=== PATIENT | male | born 1995 | race Caucasian/White ===

== ENCOUNTER 2019-01-11 08:08 | Emergency (ER) | payer BC ==
[2019-01-11 08:36] VITALS: BP 126/62
[2019-01-11] MEDS ORDERED: Ibuprofen TAB* 600 MG PO ONE (08:39)
--- NOTE | 2019-01-11 10:18 | UC ---
Abdominal Pain Male HPI - HPI Summary HPI Summary: diffuse abdominal pain x 4 days pain is dull, 5 out of 10 , has been having high fever, chills, body aches, + nausea and vomiting denies any cough , no sore throat , no neck pain , no photophobia no diarrhea, no dysuria - History of Current Complaint Chief Complaint: UCGeneralIllness Stated Complaint: FLU LIKE SYMPTOMS X 4 DAYS Time Seen by Provider: 01/11/19 08:38 Hx Obtained From: Patient Onset/Duration: Gradual Onset, Lasting Days - 4, Still Present Timing: Constant Severity Initially: Moderate Severity Currently: Moderate Pain Intensity: 5 Pain Scale Used: 0-10 Numeric Location: Diffuse Radiates: No Character: Aching Aggravating Factor(s): Nothing Alleviating Factor(s): Nothing Associated Signs And Symptoms: Positive: Fever, Nausea, Vomiting. Negative: Diaphoresis, Cough, Chest Pain, Dizzy, Back Pain, Constipation, Blood in Stool, Urinary Symptoms, Decreased Appetite, Diarrhea, Penile Discharge - Allergies/Home Medications Allergies/Adverse Reactions: Allergies Allergy/AdvReac Type Severity Reaction Status Date / Time No Known Allergies Allergy Verified 01/11/19 08:36 Home Medications: Home Medications Ibuprofen TAB* [Advil TAB*] 200 mg PO Q6H PRN 01/11/19 [History Confirmed ] PMH/Surg Hx/FS Hx/Imm Hx Previously Healthy: Yes - Surgical History Surgical History: Yes Surgery Procedure, Year, and Place: ingrown toe nails - Family History Known Family History: Negative: Diabetes - Social History Alcohol Use: Occasionally Substance Use Type: None Smoking Status (MU): Never Smoked Tobacco Review of Systems All Other Systems Reviewed And Are Negative: Yes Constitutional: Positive: Fever, Chills, Fatigue Skin: Positive: Negative Eyes: Positive: Negative ENT: Positive: Negative Respiratory: Positive: Negative Cardiovascular: Positive: Negative Gastrointestinal: Positive: Abdominal Pain, Vomiting, Nausea. Negative: Diarrhea Genitourinary: Positive: Negative. Negative: Dysuria, Hematuria Is Patient Immunocompromised?: No Physical Exam Triage Information Reviewed: Yes Appearance: Well-Appearing, No Pain Distress, Well-Nourished Vital Signs: Initial Vital Signs Temp 102.4 F 01/11/19 08:31 Pulse 106 01/11/19 08:31 Resp 16 01/11/19 08:31 BP 126/62 01/11/19 08:31 Pulse Ox 99 01/11/19 08:31 Vital Signs Reviewed: Yes Eye Exam: Normal Eyes: Positive: Conjunctiva Clear ENT: Positive: Normal ENT inspection, Hearing grossly normal, Pharynx normal Neck: Positive: Supple, Nontender, No Lymphadenopathy Respiratory: Positive: Chest non-tender, Lungs clear, Normal breath sounds Cardiovascular: Positive: Tachycardia Abdomen Description: Positive: Nontender, Soft. Negative: CVA Tenderness (R), CVA Tenderness (L), Distended, Guarding Bowel Sounds: Positive: Present Skin Exam: Normal Abd Pain Male Course/Dx - Differential Dx/Clinical Impression Provider Diagnosis: Fever, Abdominal pain Discharge ED - Sign-Out/Discharge Documenting (check all that apply): Patient Departure All imaging exams completed and their final reports reviewed: No Studies - Discharge Plan Condition: Stable Disposition: HOME Patient Education Materials: Fever in Adults (ED), Viral Syndrome (ED) Referrals: No Primary Care Phys,NOPCP [Primary Care Provider] - 2 Days Additional Instructions: symptoms most likely due to viral illness cont. with rest, fluid, take Tylenol as needed for fever will check cbc, cmp call the office tomorrow for the results please go to ED if getting worse or not better in 2 days - Billing Disposition and Condition Condition: STABLE Disposition: Home
[2019-01-11 15:33] LABS: Albumin 4.2 g/dL (3.2-5.2); Calcium 9.1 mg/dL (8.6-10.3); Potassium 3.8 mmol/L (3.5-5.0)
[2019-01-11 15:36] LABS: Hematocrit 42 % (42-52); Hemoglobin 14.8 g/dL (14.0-18.0); Mean Corpuscular HGB Conc 35 g/dL (31-36); Mean Corpuscular Hemoglobin 29 pg (27-31); Mean Corpuscular Volume 84 fL (80-94); Mean Platelet Volume 8.8 fL (7.4-10.4); Platelet Count 128 10^3/uL (150-450); Red Blood Count 5.06 10^6 /uL (4.18-5.48); Red Cell Distribution Width 12 % (10-15); White Blood Count 5.2 10^3/uL (3.5-10.8)
[2019-01-11 15:39] LABS: Albumin/Globulin Ratio 1.7 (1-3); EGFR African American 111.1 (>60); EGFR Non-African American 91.8 (>60); Globulin 2.5 g/dL (2-4); Total Protein 6.7 g/dL (6.4-8.9)
[2019-01-11 16:29] LABS: ABS Lymphocytes 1.5 10^3/ul (1.0-4.8); ABS Monocytes 0.5 10^3/ul (0-0.8); ABS Neutrophils 3.1 10^3/ul (1.5-7.7); Eosinophil % 0.7 %; Lymphocyte % 28.2 %; Nucleated Red Blood Cells % 0.1
--- NOTE | 2019-01-12 07:21 | ED ---
Progress - Progress Note Progress Note: 23 yr old with positive monospot and also elevated LFT. Please call patient to inform of positive mono. No contact sports. If he is having abdominal pain he should go to the ER for imaging of his abdomen. Follow up with primary care. Course/Dx - Diagnoses Provider Diagnoses: Fever, Abdominal pain Discharge ED - Sign-Out/Discharge Documenting (check all that apply): Patient Departure All imaging exams completed and their final reports reviewed: No Studies - Discharge Plan Condition: Stable Disposition: HOME Patient Education Materials: Fever in Adults (ED), Viral Syndrome (ED) Referrals: No Primary Care Phys,NOPCP [Primary Care Provider] - 2 Days Additional Instructions: symptoms most likely due to viral illness cont. with rest, fluid, take Tylenol as needed for fever will check cbc, cmp call the office tomorrow for the results please go to ED if getting worse or not better in 2 days - Billing Disposition and Condition Condition: STABLE Disposition: Home
== END 2019-01-11 09:42 | disposition home or self-care (01) ==
LOC: UCCORT 08:08
DX: R50.9 Fever, unspecified (principal); R94.5 Abnormal results of liver function studies; R11.2 Nausea with vomiting, unspecified; R10.84 Generalized abdominal pain
CPT/HCPCS: 36415; 80053; 81003; 85025; 85060; 86308; 99201; A9270-GY; G0463